=== PATIENT | female | born 1970 | race American Indian/Alaskan Native ===

== ENCOUNTER 2016-09-08 10:35 | Outpatient (CLI) | payer BC ==
--- NOTE | 2016-09-08 15:00 | Mammography Report ---
BILATERAL DIGITAL SCREENING MAMMOGRAM with CAD : 09/08/16 10:35:00 CLINICAL: Routine screening.Status post right benign stereotactic biopsy for calcifications 07/08/15. COMPARISON:06/28/15 FINDINGS: The breasts are heterogeneously dense, which may obscure small masses.Right upper outer biopsy clip. No mass, architectural distortion or suspicious calcifications. IMPRESSION: No mammographic evidence of malignancy. BI-RADS CATEGORY: 2 -- Benign RECOMMENDATION: Routine mammographic screening in one year. COMMENT: Patient follow-up letters are generated by our [email or web address] application.
== END 2016-09-08 10:36 | disposition home or self-care (01) ==
LOC: SPVWC 10:35
PROVIDERS: ATTEND Internal Medicine
DX: Z12.31 Encounter for screening mammogram for malignant neoplasm of breast (principal)
CPT/HCPCS: 77067; G0202

== ENCOUNTER 2017-03-16 09:18 | Outpatient (CLI) | payer BC ==
--- NOTE | 2017-03-16 10:32 | XRay Report ---
RIGHT FINGER RADIOGRAPHS INDICATION: Right index finger pain, fell on coral rock in shallow water. COMPARISON: None similar. FINDINGS: An AP view of the right hand with oblique and lateral projections of the index finger demonstrate intact bones and joints. Extensive index finger soft tissue swelling proximally, greatest centered about the PIP joint. No radiopaque foreign body. Normal remainder exam. CONCLUSION: Extensive right index finger soft tissue swelling/hematoma centered about the PIP joint without definite acute fracture displacement. Please correlate. Thank you for the opportunity to participate in this patient's care.
== END 2017-03-16 09:19 | disposition home or self-care (01) ==
LOC: SPVIMAG 09:18
PROVIDERS: ATTEND Orthopaedic Surgery
DX: M25.541 Pain in joints of right hand (principal)

== ENCOUNTER 2017-09-11 16:04 | Outpatient (CLI) | payer BC ==
--- NOTE | 2017-09-12 14:41 | Mammography Report ---
BILATERAL DIGITAL SCREENING MAMMOGRAM with CAD : 09/11/17 16:04:00 CLINICAL: Routine screening. COMPARISON:09/08/16 FINDINGS: The breasts are heterogeneously dense, which may obscure small masses.Stable bilateral scattered calcifications with benign morphology. No mass, architectural distortion or suspicious calcifications. IMPRESSION: No mammographic evidence of malignancy. BI-RADS CATEGORY: 2 -- Benign RECOMMENDATION: Routine mammographic screening in one year. COMMENT: Patient follow-up letters are generated by our [email or web address] application.
== END 2017-09-11 16:05 | disposition home or self-care (01) ==
LOC: SPVWC 16:04
PROVIDERS: ATTEND Internal Medicine
DX: Z12.31 Encounter for screening mammogram for malignant neoplasm of breast (principal)
CPT/HCPCS: 77067

== ENCOUNTER 2019-02-04 08:40 | Outpatient (CLI) | payer BC ==
--- NOTE | 2019-02-04 16:01 | Mammography Report ---
DIGITAL SCREENING MAMMOGRAM WITH CAD, 02/04/2019 INDICATION: Routine screening mammography. History of a benign right stereotactic biopsy for calcific ations. TECHNIQUE: Digital 2D mammography was obtained in the craniocaudal and mediolateral oblique proje ctions. This examination was interpreted with the benefit of Computer-Aided Detection analysis. COMPARISON: 09/11/2017 and 09/08/2016 FINDINGS: Breast Density: The breasts are heterogeneously dense, which may obscure small masses. A right upper asymmetry on the MLO view requires additional imaging. Right outer biopsy clip. No arch itectural distortion or suspicious calcifications. The left breast is negative. IMPRESSION: Right asymmetry requiring additional imaging. Recommend recall for right lateral and spot compression MLO views and right breast ultrasound if needed. Follow up recommendation: Special View: Spot Category 0: Incomplete. Needs additional imaging evaluation and/or prior mammograms for comparison. A "normal" or negative report should not discourage follow up or biopsy of a clinically significant f inding. A written summary of these findings will be mailed to the patient. The patient will be entered into a mammography reporting system which will generate a reminder letter for the patient's next appointmen t at the appropriate interval. The [employer] recommends yearly mammograms starting at age 40 and continuing as l brandan as a woman is in good health. Breast MRI is recommended for women with an approximate 20-25% or greater lifetime risk of breast cancer, including women with a strong family history of breast or ova yolanda cancer or who have been treated for Hodgkin's disease. Signer Name: Mario Naranjo MD Signed: 02/04/2019 3:57 PM Workstation Name: [id number]
== END 2019-02-04 08:41 | disposition home or self-care (01) ==
LOC: SPVWC 08:40
PROVIDERS: ATTEND Internal Medicine
DX: Z12.31 Encounter for screening mammogram for malignant neoplasm of breast (principal)
CPT/HCPCS: 77067

== ENCOUNTER 2019-03-04 14:59 | Outpatient (CLI) | payer BC ==
--- NOTE | 2019-03-04 15:52 | Mammography Report ---
DIGITAL DIAGNOSTIC MAMMOGRAM WITH CAD, -- 03/04/2019 INDICATION: Recalled to evaluate asymmetry. TECHNIQUE: Digital right mammographic imaging was performed. Spot compression views were obtained. This examination was interpreted with the benefit of Computer-aided Detection analysis. COMPARISON: 02/04/2019 FINDINGS: Breast Density: The breast is heterogeneously dense, which may obscure small masses. Additional right mammographic views were performed and are negative. Satisfactory effacement of asymm etry on spot compression views. A lateral view is also negative. IMPRESSION: No mammographic evidence of malignancy. Follow up recommendation: Routine yearly BI-RADS Category 1: Negative. A "normal" or negative report should not discourage follow up or biopsy of a clinically significant f inding. A written summary of these findings will be mailed to the patient. The patient will be entered into a mammography reporting system which will generate a reminder letter for the patient's next appointmen t at the appropriate interval. According to the [employer], yearly mammograms are recommended starting at age 40 and continuing as long as a woman is in good health. Breast MRI is recommended for women with an kimberly roximately 20-25% or greater lifetime risk of breast cancer, including women with a strong family his tory of breast or ovarian cancer and women who have been treated for Hodgkin's disease. Signer Name: Mario Naranjo MD Signed: 03/04/2019 3:47 PM Workstation Name: [id number]
== END 2019-03-04 15:00 | disposition home or self-care (01) ==
LOC: SPVWC 14:59
PROVIDERS: ATTEND Internal Medicine
DX: R92.2 Inconclusive mammogram (principal)

== ENCOUNTER 2020-07-08 13:06 | Outpatient (CLI) | payer BC ==
--- NOTE | 2020-07-08 14:06 | Mammography Report ---
DIGITAL SCREENING MAMMOGRAM WITH CAD, 07/08/2020 CLINICAL INFORMATION / INDICATION: Routine screening mammography. SCREENING MAMMO TECHNIQUE: Digital bilateral 2D mammography was obtained in the craniocaudal and mediolateral obliqu e projections. This examination was interpreted with the benefit of Computer-Aided Detection analysis . COMPARISON: Prior mammograms 02/04/2019 and 09/11/2017 FINDINGS: Breast Density: The breasts are heterogeneously dense, which may obscure small masses. No dominant mass, suspicious calcifications, or architectural distortion in either breast. There is a stable biopsy clip in the right breast. There has been no significant change compared with the prior examinations. IMPRESSION: No mammographic evidence of malignancy. Follow up recommendation: Routine yearly BI-RADS Category 2: Benign. A "normal" or negative report should not discourage follow up or biopsy of a clinically significant f inding. A written summary of these findings will be mailed to the patient. The patient will be entered into a mammography reporting system which will generate a reminder letter for the patient's next appointmen t at the appropriate interval. The [employer] recommends yearly mammograms starting at age 40 and continuing as l brandan as a woman is in good health. Breast MRI is recommended for women with an approximate 20-25% or greater lifetime risk of breast cancer, including women with a strong family history of breast or ova yolanda cancer or who have been treated for Hodgkin's disease. Signer Name: Siri Blackburn MD Signed: 07/08/2020 2:02 PM Workstation Name: [id number]
== END 2020-07-08 13:07 | disposition home or self-care (01) ==
LOC: SPVWC 13:06
PROVIDERS: ATTEND Internal Medicine
DX: Z12.31 Encounter for screening mammogram for malignant neoplasm of breast (principal)
CPT/HCPCS: 77067